=== PATIENT | female | born 1995 | race African-American/Black ===

== ENCOUNTER → 2018-12-29 | Outpatient (CLI) | payer OTHER ==
[~2018-12-29] MED LIST: ISOVUE-370 76% 100ML VIAL (Q9967) As Ordered ONE
--- NOTE | 2018-12-30 08:30 | REP ---
CT NECK WITH CONTRAST: HISTORY: Neck swelling. CONTRAST: Isovue 370, 75 mL. A BB was placed on the right anterior neck at the level of the C4 vertebral body. The naso-, nemo-, and hypopharynx, larynx, and subglottic trachea are normal in appearance. The salivary glands are normal in size and density. Hypodensities 3 and 5 mm in size are present in the right thyroid lobe. These most likely represent cysts. The left thyroid lobe is normal in size and density. An enlarged lymph node 1.5 cm in width is present in the right internal jugular chain at the level of the nemo- and hypopharynx. An enlarged lymph node 1.6 cm in width is present in the left internal jugular chain at the level of the hypopharynx. Small lymph nodes less than 1 cm in size are present in the posterior triangles, submandibular and submental areas. The lung apices are clear. The visualized sinuses are clear. IMPRESSION: 1. There are several enlarged lymph nodes in the internal jugular chains as described above.2. There are at two hypodensities in the the right upper lobe and 3 and 5 mm in size that most likely represent cysts. Electronically Signed by Lukas Lara MD 12/30/2018 08:35 A
== END ==
LOC: M RAD 17:07
PROVIDERS: ATTEND Otolaryngology
DX: R59.0 Localized enlarged lymph nodes (principal)
CPT/HCPCS: 70491; Q9967

== ENCOUNTER 2019-03-14 05:59 | Day surgery (SDC) | payer MEDICARE ==
[~2019-03-14] VITALS: Ht 172.7 cm; Wt 59.0 kg
[2019-03-14] MEDS ORDERED: LIDOCAINE 1% MDV 20ML VIAL SQ PRN (06:00)
[2019-03-14] MEDS ORDERED: LR 1,000 ML IV ONE (06:00)
[2019-03-14] MEDS ORDERED: BACITRACIN OINT 30GM As Ordered ONE (06:47)
[2019-03-14] MEDS ORDERED: LIDOCAINE W/EPINEPHRINE 1% 20ML VIAL As Ordered ONE (06:47)
[2019-03-14] MEDS ORDERED: ROCURONIUM BROMIDE 50 MG/5 ML VIAL As Ordered ONE (07:06)
[2019-03-14] MEDS ORDERED: PROPOFOL 200 MG/20 ML VIAL As Ordered ONE (07:06)
[2019-03-14] MEDS ORDERED: LIDOCAINE 2% INJ 100 MG/5 ML SDV (FOR ANES.) As Ordered ONE (07:06)
[2019-03-14 07:07] LABS: URINE PREG TEST NEGATIVE (NEGATIVE)
[2019-03-14] MEDS ORDERED: fentaNYL 250 MCG/5 ML INJECTION (J3010) As Ordered ONE (07:07)
[2019-03-14] MEDS ORDERED: MIDAZOLAM INJ 2 MG/2 ML VIAL (J2250) As Ordered ONE (07:07)
[2019-03-14] MEDS ORDERED: ONDANSETRON 4MG/2ML VIAL (J2405) As Ordered ONE (07:11)
[2019-03-14] MEDS ORDERED: dexameTHASONE 4 MG/ML 1ML VIAL (J1100) As Ordered ONE (07:11)
[2019-03-14] MEDS ORDERED: ACETAMINOPHEN 1000MG 100ML IV BTL (OFIRMEV) (J0131 PER 10MG) As Ordered ONE (07:53)
[2019-03-14] MEDS ORDERED: SUGAMMADEX SODIUM 500 MG/5 ML VIAL (BRIDION) As Ordered ONE (08:06)
[2019-03-14] MEDS ORDERED: MEPERIDINE INJ 25 MG/ML VIAL (J2175) IV PRN (09:30)
[2019-03-14] MEDS ORDERED: PERCOCET 5MG/325MG TAB PO PRN (09:30)
[2019-03-14] MEDS ORDERED: LR 1,000 ML IV SCH ×2 (09:30)
[2019-03-14] MEDS ORDERED: ONDANSETRON 4MG/2ML VIAL (J2405) IV PRN (09:30)
[2019-03-14] MEDS ORDERED: ACETAMINOPH W/CODEINE #3 TAB UD PO PRN (09:30)
[2019-03-14] MEDS ORDERED: METOCLOPRAMIDE INJ 10MG/2ML VIAL (J2765) IV PRN (09:30)
[2019-03-14] MEDS ORDERED: fentaNYL 100 MCG/2 ML INJECTION (J3010) IV PRN (09:30)
[2019-03-14] MEDS ORDERED: oxyCODONE 5MG TAB As Ordered ONE (09:56)
[2019-03-14] MEDS ORDERED: oxyCODONE 5MG TAB PO PRN (10:00)
[2019-03-14 10:35] VITALS: BP 121/80
--- NOTE | 2019-03-14 14:17 | RO ---
DATE OF PROCEDURE: 03/14/2019 PREPROCEDURE DIAGNOSIS: Mass on right neck. POSTPROCEDURE DIAGNOSIS: Mass on right neck. PROCEDURE: Exploration of the neck on the right side, excision of mass from right neck. SURGEON: Parker Myers MD NIGHT SHIFT MANAGER: ANESTHESIA: FINDINGS: There was a mass just on top of the internal jugular vein, deep, which measured 2 x 5 cm. DESCRIPTION OF PROCEDURE: Under general anesthesia with the patient intubated, the patient was prepped and draped in the usual manner. I marked out the skin incision and infiltrated with Lidocaine and epinephrine. I made a skin incision and divided through the subcutaneous tissues and platysma. There were some superficial blood vessels, which I retracted out of the way. I then dissected deeply and found the mass. I dissected it free with sharp and blunt dissection using cautery. The mass was resected in total. The area was irrigated to make sure that there was no bleeding. Once this was done, there was no bleeding and so I put in some Surgicel and closed the wound with 4-0 Vicryl and 5-0 nylon suture. The patient tolerated the procedure well. Minimal blood loss. The patient was extubated and transferred to the recovery room in excellent condition.
== END 2019-03-14 10:49 | disposition home or self-care (01) ==
LOC: M SDC 05:59
PROVIDERS: ATTEND Otolaryngology
DX: R59.9 Enlarged lymph nodes, unspecified (principal)
CPT/HCPCS: 21554; 84703; 88307; J0131; J1100; J2250; J2405; J3010

== ENCOUNTER 2019-09-24 09:47 | Emergency (ER) | payer MEDICARE, OTHER ==
[~2019-09-24] VITALS: Ht 172.7 cm; Wt 65.4 kg
[2019-09-24 10:19] LABS: BASO % 0.2 % (0.0-1.0); EOS # 0.2 10^3/uL (0.0-0.5); EOS % 3.6 % (0.0-3.0); HEMATOCRIT 40.7 % (36.0-47.0); HEMOGLOBIN 13.3 g/dl (12.0-15.5); LYMPH # 2.2 10^3/uL (1.5-5.0); LYMPH % 38.7 % (24.0-44.0); MEAN CORPUSCULAR HEMOGLOBIN 29.8 pg (27.0-33.0); MEAN CORPUSCULAR HGB CONC 32.7 g/dl (32.0-36.5); MEAN CORPUSCULAR VOLUME 91.3 fl (80.0-96.0); MONO # 0.4 10^3/uL (0.0-0.8); MONO % 6.7 % (0.0-5.0); NEUTROPHILS # 2.9 10^3/uL (1.5-8.5); NEUTROPHILS % 50.6 % (36.0-66.0); PLATELET COUNT, AUTOMATED 292 10^3/uL (150-450); RED BLOOD COUNT 4.46 10^6/uL (4.00-5.40); WHITE BLOOD COUNT 5.6 10^3/uL (4.0-10.0)
[2019-09-24 10:57] LABS: BLOOD UREA NITROGEN 11 MG/DL (7-18); CALCIUM LEVEL 8.9 MG/DL (8.5-10.1); CARBON DIOXIDE LEVEL 31 MEQ/L (21-32); CHLORIDE LEVEL 108 MEQ/L (98-107); CREATININE FOR GFR 0.87 MG/DL (0.55-1.30); GLOMERULAR FILTRATION RATE > 60.0 (>60); GLUCOSE, FASTING 104 MG/DL (70-100); POTASSIUM SERUM 4.3 MEQ/L (3.5-5.1); SODIUM LEVEL 142 MEQ/L (136-145)
[2019-09-24] MEDS ORDERED: MACR100C43 PO (11:03)
[2019-09-24 11:04] VITALS: BP 117/70
== END 2019-09-24 11:08 | disposition home or self-care (01) ==
LOC: M ED 09:47
DX: N39.0 Urinary tract infection, site not specified (principal); N93.9 Abnormal uterine and vaginal bleeding, unspecified; Z79.899 Other long term (current) drug therapy

== ENCOUNTER → 2019-11-14 | Outpatient (REF) ==
[~2019-11-14] MED LIST changes: -ISOVUE-370 76% 100ML VIAL (Q9967) As Ordered ONE; +MACR100C43 PO
== END ==
LOC: M LAB 10:29
PROVIDERS: ATTEND Nurse Practitioner Adult Health
DX: Z02.1 Encounter for pre-employment examination (principal)